=== PATIENT | female | born 1970 | race Asian ===

== ENCOUNTER 2022-08-08 10:43 | Day surgery (SDC) | payer OTHER ==
[~2022-08-08] VITALS: Ht 157.5 cm; Wt 67.6 kg
[2022-08-08] MEDS ORDERED: MIDAZOLAM 2 MG/2 ML VIAL ONE (11:35)
[2022-08-08] MEDS ORDERED: fentaNYL citrate 0.05 MG/ML VIAL ONE (11:35)
[2022-08-08] MEDS ORDERED: diphenhydrAMINE 50 MG/ML VIAL ONE (11:35)
[2022-08-08] MEDS ORDERED: LIDOCAINE 2% 100 MG/5 ML UJET TP ONE (11:35)
[2022-08-08] MEDS ORDERED: fentaNYL citrate 0.05 MG/ML VIAL IVP ONE (13:40)
[2022-08-08] MEDS ORDERED: MIDAZOLAM 2 MG/2 ML VIAL IVP ONE (13:40)
== END 2022-08-08 12:55 | disposition home or self-care (01) ==
LOC: MMU 10:43 → MDS 10:43
PROVIDERS: ATTEND Internal Medicine Gastroenterology
DX: Z12.11 Encounter for screening for malignant neoplasm of colon (principal); K59.00 Constipation, unspecified; I10 Essential (primary) hypertension; E11.9 Type 2 diabetes mellitus without complications; E78.5 Hyperlipidemia, unspecified; J45.909 Unspecified asthma, uncomplicated; K21.9 Gastro-esophageal reflux disease without esophagitis; Z20.822 Contact with and (suspected) exposure to COVID-19; Z79.899 Other long term (current) drug therapy
CPT/HCPCS: 45378; 87426; J2250; J3010; J1200